=== PATIENT | male | born 1990 | race Two or more races ===

== ENCOUNTER 2022-01-08 05:23 | Emergency (ER) | payer SELFPAY ==
[2022-01-08 05:31] VITALS: BP 162/83; PULSE 74; RESP 17; TEMP 36.7; O2SAT 98
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
[2022-01-08] MEDS: oxyCODONE-APAP 5-325 mg Tablet 2 TAB PO (06:02)
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
--- NOTE | 2022-01-08 07:01 | PC.NURSE ---
pt resting in bed, asleep. lung sounds clear bilat. call light within reach. lights dimmed.
[2022-01-08 07:07] VITALS: BP 108/57; PULSE 59; RESP 14; O2SAT 95
[2022-01-08 07:55] VITALS: BP 138/61; PULSE 72; RESP 14; O2SAT 97
== END 2022-01-08 07:57 | disposition home or self-care (01) ==
PROVIDERS: Emergency Provider Emergency Medicine
DX: S39.012A Strain of muscle, fascia and tendon of lower back, initial encounter (principal); V40.5XXA Car driver injured in collision with pedestrian or animal in traffic accident, initial encounter
CPT/HCPCS: 72131; 99284